=== PATIENT | male | born 1995 | race African-American/Black ===

== ENCOUNTER 2018-05-02 08:31 | Emergency (ER) | payer MEDICAID ==
[~2018-05-02] VITALS: Ht 177.8 cm; Wt 95.3 kg
[2018-05-02] MEDS ORDERED: VITAMIN D1000 UNI1 ORAL (08:41)
[2018-05-02 08:50] VITALS: BP 126/72
[2018-05-02 09:13] LABS: APPEARANCE,URINE CLEAR; BILIRUBIN, URINE NEGATIVE (NEGATIVE); GLUCOSE, URINE (UA) NEGATIVE (NEGATIVE); KETONES,URINE NEGATIVE (NEGATIVE); LEUKOCYTE ESTERASE ,URINE 1+ (NEGATIVE); NITRITE,URINE NEGATIVE (NEGATIVE); PH,URINE 6 (4.5-8.0); PROTEIN,URINE 1+ (NEGATIVE); UROBILINOGEN,URINE 1 MG/DL (0.0-1.0)
[2018-05-02 09:23] LABS: COLOR,URINE YELLOW
[2018-05-02] MEDS ORDERED: DOXYCYCLINE MO100 MG ORAL (10:14)
--- NOTE | 2018-05-02 10:20 | Emergency Room Report ---
History of Present Illness General Chief Complaint: Male Urogenital Problems Source: Patient Present Illness HPI 22-year-old male presents ED for evaluation. States he's been experiencing scrotal pain for the last several days. 2 out of 10, dull, nonradiating. Localized to right. Denies any discharge. States he had similar pain in the past and was diagnosed with epididymitis. Denies any unprotected sex. Other aggravating relieving factors. Denies any other associated symptoms Allergies: Coded Allergies: No Known Allergies (Unverified , 05/02/18) Patient History Past Medical History: none Past Surgical History: none Pertinent Family History: none Social History: Denies: smoking, alcohol use, drug use Immunizations: UTD Reviewed Nursing Documentation: PMH: Agreed; PSxH: Agreed Nursing Documentation-PMH Past Medical History: No History, Except For Hx Dialysis: No - Epididymitis 2016 Review of Systems All Other Systems: negative except mentioned in HPI Physical Exam Vital Signs Date Time Temp Pulse Resp B/P (MAP) Pulse Ox O2 Delivery O2 Flow Rate FiO2 05/02/18 08:35 97.9 75 18 126/72 99 Room Air Sp02 EP Interpretation: reviewed, normal General Appearance: no apparent distress, alert, GCS 15, non-toxic Head: normocephalic Eyes: bilateral eye normal inspection, bilateral eye PERRL ENT: normal ENT inspection Neck: normal inspection Respiratory: normal inspection Cardiovascular #1: normal inspection Gastrointestinal: normal inspection Rectal: deferred Genitourinary: no CVA tenderness, other - R testicular pain. no erythema/ swelling. Musculoskeletal: normal inspection Neurologic: alert, oriented x3, responsive, motor strength/tone normal, sensory intact, speech normal Psychiatric: normal inspection Skin: normal inspection Lymphatic: normal inspection Medical Decision Making Diagnostic Impression: Primary Impression: Scrotal pain ER Course Hospital Course 22-year-old male presents to ED with right testicular pain Differential diagnoses include: hydrocele, varicocele, epididymitis, testicular torsion Clinical course Patient placed on stretcher. After initial history and physical I ordered UA and scrotal ultrasound. UA-normal Ultrasound shows bilateral hydroceles, normal epididymi. No evidence of torsion. Good flow to both testicles. Reassurance given unlikely epididymitis. We'll provide urology referral. Prescription for doxycycline Diagnosis - scrotal pain stable and discharged to home with prescription for Doxycycline. Followup with urology. Return to ED if symptoms recur or worsen Labs Test 05/02/18 09:07 Urine Color Yellow Urine Appearance Clear Urine pH 6 (4.5-8.0) Urine Specific [place] 1.025 (1.005-1.035) Urine Protein 1+ (NEGATIVE) Urine Glucose (UA) Negative (NEGATIVE) Urine Ketones Negative (NEGATIVE) Urine Blood Negative (NEGATIVE) Urine Nitrite Negative (NEGATIVE) Urine Bilirubin Negative (NEGATIVE) Urine Urobilinogen 1 MG/DL (0.0-1.0) Urine Leukocyte Esterase 1+ (NEGATIVE) Urine RBC 0 /HPF (0 - 0) Urine WBC 0-2 /HPF (0 - 0) Urine Squamous Epithelial Cells Occasional /LPF Urine Bacteria Occasional /HPF (NONE) Urine Mucus Moderate /LPF (NONE/OCC) CT/MRI/US Diagnostic Results CT/MRI/US Diagnostic Results : Imaging Test Ordered: Scrotal US Impression normal flow bilaterally. bilateral epididymi normal. R hydrocele. Last Vital Signs Date Time Temp Pulse Resp B/P (MAP) Pulse Ox O2 Delivery O2 Flow Rate FiO2 05/02/18 08:50 97.9 75 18 126/72 99 Room Air Status: improved Disposition: HOME, SELF-CARE Condition: Stable Scripts Doxycycline Monohydrate* (DOXYCYCLINE MONOHYDRATE*) 100 Mg Capsule 100 MG ORAL Q12H, #14 CAP 0 Refills Prov: Zay Nicole MD 05/02/18 Referrals: Brent Horta M.D. NON PHYSICIAN (PCP) Patient Instructions: Hydrocele, Adult, Epididymitis Zay Nicole MD May 02, 2018 10:20
[2018-05-02 10:24] VITALS: BP 125/70
--- NOTE | 2018-05-02 12:30 | Diagnostic Imaging Report ---
Indication:Scrotal pain Technique: Real time grayscale and duplex Doppler imaging of the scrotum performed. Comparison: None Findings: The size, contour, and echogenicitiy of the testis appear normal bilaterally. Small bilateral hydroceles are present. There is no testicular mass or evidence of torsion. There is good doppler evidence of blood flow within both testes. Epididimi are unremarkable. Right testis 4.1 x 2 x 2.7 cm. Left testis 4.2 x 2 x 3.2 cm. Impression: Negative scrotal ultrasound. Small bilateral hydroceles
== END 2018-05-02 10:27 | disposition home or self-care (01) ==
LOC: EMR 08:55
DX: N50.82 Scrotal pain (principal)
CPT/HCPCS: 76870; 81003; 99284

== ENCOUNTER 2018-08-28 10:34 | Emergency (ER) | payer MEDICAID ==
[~2018-08-28] VITALS: Ht 177.8 cm; Wt 95.3 kg
[~2018-08-28 10:34] MED LIST: DOXYCYCLINE MO100 MG ORAL; VITAMIN D1000 UNI1 ORAL; ZOFRAN4 MG ORAL
[2018-08-28 10:37] VITALS: BP 122/64
[2018-08-28] MEDS ORDERED: NKM (10:39)
--- NOTE | 2018-08-28 10:47 | NUR ---
ED Nurse Note: Pt c/o abd. pain since wednesday. Denies n/V/D. No other symptoms.
[2018-08-28] MEDS ORDERED: Mylanta II UD 30ml ORAL ONE (11:15)
--- NOTE | 2018-08-28 12:43 | Emergency Room Report ---
History of Present Illness General Chief Complaint: Abdominal Pain Source: Patient Present Illness HPI Patient presents with epigastric discomfort since Wednesday. He rates the pain 2/ 10, mostly constant, non-radiating, burning. He denies nausea or vomiting. He is unsure whether eating helps the pain. He has had these symptoms intermittently for several months. He is not used any medication to treat himself. He denies change in his bowels. He does not report any increase in stress however is working and is a student. No fevers, chills, chest pain, palpitations, diarrhea, dysuria, shortness of breath, depression, visual changes, headache. Allergies: Coded Allergies: No Known Allergies (Unverified , 05/02/18) Patient History Social History: Denies: smoking, alcohol use Social History Narrative Sales Reviewed Nursing Documentation: PMH: Agreed; PSxH: Agreed Nursing Documentation-PMH Hx Dialysis: No - Epididymitis 2017 Review of Systems All Other Systems: negative except mentioned in HPI Physical Exam Vital Signs Date Time Temp Pulse Resp B/P (MAP) Pulse Ox O2 Delivery O2 Flow Rate FiO2 08/28/18 10:37 98.2 74 19 122/64 99 Room Air Sp02 EP Interpretation: reviewed, normal General Appearance: well appearing, no apparent distress, alert, GCS 15 Head: normocephalic, atraumatic Eyes: bilateral eye normal inspection, bilateral eye PERRL ENT: hearing grossly normal, normal voice, moist mucus membranes Neck: full range of motion, supple Respiratory: no respiratory distress, speaking full sentences Cardiovascular #1: regular rate, rhythm Cardiovascular #2: 2+ radial (L) Gastrointestinal: normal inspection, normal bowel sounds, non tender, soft Musculoskeletal: digits/nails normal, gait/station normal Neurologic: alert, nystagmus Psychiatric: mood/affect normal Skin: no rash Medical Decision Making Diagnostic Impression: Primary Impression: Epigastric pain ER Course Patient presents with several days of epigastric pain. Differential includes GERD, gastritis, heartburn, peptic ulcer disease amongst others. Based on history and physical labs are not indicated at this time. No imaging studies are indicated. The patient is treated with Tylenol, Mylanta and Pepcid. Patient's pain resolved with treatment Discussed with patient need for outpatient follow-up. Patient stable for outpatient observation and treatment. Last Vital Signs Date Time Temp Pulse Resp B/P (MAP) Pulse Ox O2 Delivery O2 Flow Rate FiO2 08/28/18 12:57 98.7 71 19 127/61 99 Room Air Status: improved Disposition: HOME, SELF-CARE Condition: Improved Scripts Acetaminophen (Tylenol) 325 Mg Tablet 650 MG ORAL Q6H PRN for Prn Pain/Headache/Temp > 101, #20 TAB 0 Refills Prov: Jordan Mckoy MD 08/28/18 Mag Hydrox/Al Hydrox/Simeth (MAALOX MAXIMUM STRENGTH SUSP) 355 Ml Oral.susp 30 ML PO Q6HR, #240 ML Prov: Jordan Mckoy MD 08/28/18 Famotidine (PEPCID AC) 20 Mg Tablet 20 MG PO DAILY, #30 TAB Prov: Jordan Mckoy MD 08/28/18 Jordan Mckoy MD Aug 28, 2018 12:43
[2018-08-28] MEDS ORDERED: TYLENOL325 MG ORAL (12:46)
[2018-08-28] MEDS ORDERED: PEPCID AC20 M2 PO (12:46)
[2018-08-28] MEDS ORDERED: MAALOX MAXIMUM355 M1 PO (12:46)
--- NOTE | 2018-08-28 12:56 | NUR ---
ED Nurse Note: pt cleared to be d/c per ERMD, pt discharge and aftercare instruction provided w/ prescription, pt education done via discussion and handout, pt advised to follow up with pcp or return to ed if sx worsen or new sx develop, pt verbalized understanding and agrees with plan, vss, ambulatory w/ steady gait, id band removed, left w/ all belongings.
[2018-08-28 12:57] VITALS: BP 127/61
== END 2018-08-28 12:57 | disposition home or self-care (01) ==
LOC: EMR 10:50
DX: R10.13 Epigastric pain (principal)
CPT/HCPCS: 99283

== ENCOUNTER 2018-11-15 17:51 | Emergency (ER) | payer MEDICAID ==
[~2018-11-15] VITALS: Ht 177.8 cm; Wt 95.3 kg
[~2018-11-15 17:51] MED LIST changes: +MAALOX MAXIMUM355 M1 PO; +NKM; +PEPCID AC20 M2 PO; +TYLENOL325 MG ORAL
--- NOTE | 2018-11-15 17:55 | NUR ---
ED Nurse Note: Pt has been experiencing nausea/vomiting x 1 week, got admitted in [facility] for gastritis in 08/2018, suspects " I feel like Im experiencing the same symptoms"
[2018-11-15 18:00] VITALS: BP 121/64
--- NOTE | 2018-11-15 18:15 | Emergency Room Report ---
History of Present Illness General Chief Complaint: Nausea, Vomiting, and Diarrhea Source: Patient Present Illness HPI 23-year-old male with significant history of gastritis here complaining of 3 out of 10 epigastric pain for the past week and nausea and acid reflux. Patient reports one bout of nonbloody vomiting denying diarrhea and constipation. Denying blood in his stool. Patient reports that he was not consistently taking his antacids. Has refrained from acidic, spicy food. However he has been under a lot of stress due to his job and school lately. Denies smoking and alcohol intake. Denies drug use. Denies chest pain, palpitation, shortness of breath, fever and chills. Patient reports that the nausea and acid reflux his work as he lays down. Not follow-up with the primary care physician in this regard yet. Patient was previously here in August 2018 for the same issue. Allergies: Coded Allergies: No Known Allergies (Unverified , 05/02/18) Patient History Past Medical History: see triage record Past Surgical History: unable to obtain Pertinent Family History: none Immunizations: UTD Reviewed Nursing Documentation: PMH: Agreed; PSxH: Agreed Nursing Documentation-PMH Past Medical History: No History, Except For Hx Gastrointestinal Problems: Yes - Gastritis Hx Dialysis: No - Epididymitis 2017 Review of Systems All Other Systems: negative except mentioned in HPI Physical Exam Vital Signs Date Time Temp Pulse Resp B/P (MAP) Pulse Ox O2 Delivery O2 Flow Rate FiO2 11/15/18 17:55 98.6 84 20 121/64 (83) 97 Room Air Sp02 EP Interpretation: reviewed, normal General Appearance: normal inspection, well appearing, no apparent distress, alert, GCS 15, non-toxic Head: normocephalic, atraumatic Eyes: bilateral eye normal inspection, bilateral eye PERRL ENT: normal ENT inspection, hearing grossly normal Neck: normal inspection, full range of motion, supple, thyroid normal Respiratory: normal inspection, chest non-tender, lungs clear, no rhonchi, no retraction, no wheezing Cardiovascular #1: normal inspection, normal peripheral pulses, regular rate, rhythm, no murmur, normal capillary refill Gastrointestinal: normal inspection, normal bowel sounds, non tender, soft, no mass, no guarding Rectal: deferred Genitourinary: no CVA tenderness Musculoskeletal: back normal Neurologic: normal inspection, alert, oriented x3 Psychiatric: normal inspection, judgement/insight normal Skin: normal inspection, normal color, no rash, warm/dry, palpation normal Lymphatic: normal inspection, no adenopathy Medical Decision Making PA Attestation All my diagnosis and treatment plans were reviewed ad discussed with my supervising physician Dr. Nicole Diagnostic Impression: Primary Impression: Acute gastritis without mention of hemorrhage ER Course 23-year-old male with significant history of gastritis here complaining of 3 out of 10 epigastric pain for the past week and nausea and acid reflux. Patient reports one bout of nonbloody vomiting denying diarrhea and constipation. Denying blood in his stool. Patient reports that he was not consistently taking his antacids. Has refrained from acidic, spicy food. However he has been under a lot of stress due to his job and school lately. Denies smoking and alcohol intake. Denies drug use. Denies chest pain, palpitation, shortness of breath, fever and chills. Patient reports that the nausea and acid reflux his work as he lays down. Not follow-up with the primary care physician in this regard yet. Patient was previously here in August 2018 for the same issue. Ddx considered but are not limited to: appendicitis, cholycisitis, gastritis, gasthroentritis, UTI, pylonephritis, SBO, diverticulitis, influenza with GI manifestation, Vital signs: are WNL, pt. is afebrile H&PE are most consistent with: Chronic gastritis ORDERS: Pantoprazole, Zofran, Tylenol ED INTERVENTIONS: None required at this time. DISCHARGE: At this time pt. is stable for d/c to home. Will provide printed patient care instructions, and any necessary prescriptions. Care plan and follow up instructions have been discussed with the patient prior to discharge. I advised the patient to follow-up with a primary care provider for referral to solutions development analyst and also an endoscopy as this is a second round of PPI and H2 blockers that he has been trying in the past several months for his gastritis symptoms. Last Vital Signs Date Time Temp Pulse Resp B/P (MAP) Pulse Ox O2 Delivery O2 Flow Rate FiO2 11/15/18 17:55 98.6 84 20 121/64 (83) 97 Room Air Disposition: HOME, SELF-CARE Condition: Stable Scripts Acetaminophen (ACETAMINOPHEN ER) 650 Mg Tablet.er 650 MG ORAL Q8H, #20 TAB Prov: Melissa Cartwright 11/15/18 Ondansetron (Zofran) 4 Mg Tablet 4 MG ORAL Q6H PRN for Nausea & Vomiting, #15 TAB Prov: Melissa Cartwright 11/15/18 Pantoprazole* (PANTOPRAZOLE*) 40 Mg Tablet.dr 40 MG ORAL DAILY, #30 TAB Prov: Melissa Cartwright 11/15/18 Referrals: [facility],REFERRING (PCP) Patient Instructions: Food Choices for Gastroesophageal Reflux Disease, Adult, [id number], Gastritis, Adult, [id number] Additional Instructions: Follow-up with a primary care provider for referral to solutions development analyst and endoscopy as this is a second course of PPI and H2 ryan treatment for you and in order to treat gastritis better to be scoped by a solutions development analyst for other possibilities such as ulcer, hemorrhage, and all other abnormalities. Melissa Cartwright Nov 15, 2018 18:15
[2018-11-15] MEDS ORDERED: ACETAMINOPHEN650 M3 ORAL (18:17)
[2018-11-15] MEDS ORDERED: ZOFRAN4 M1 ORAL (18:17)
[2018-11-15] MEDS ORDERED: PANTOPRAZOLE SO40 MG ORAL (18:17)
[2018-11-15 18:26] VITALS: BP 121/64
--- NOTE | 2018-11-15 18:55 | NUR ---
ER DISCHARGE NOTE: Patient is cleared to be discharged per ERMD, pt is aox4, on room air, with stable vital signs. pt was given dc and prescription instructions, pt was able to verbalize understanding, pt id band removed without complications. pt is able to ambulate with steady gait. pt took all belongings.
== END 2018-11-15 18:55 | disposition home or self-care (01) ==
LOC: EMR 18:06
DX: K29.00 Acute gastritis without bleeding (principal)
CPT/HCPCS: 99282